=== PATIENT | male | born 1965 | race Caucasian/White ===

== ENCOUNTER 2016-10-08 07:25 | Emergency (ER) | payer OTHER ==
[~2016-10-08] VITALS: Ht 180.3 cm; Wt 106.8 kg
[2016-10-08 07:28] VITALS: BP 135/95; PULSE 81; RESP 14; O2SAT 97
--- NOTE | 2016-10-08 07:43 | ED.REPORT ---
HPI-General Illness Date of Service Oct 08, 2016 ED Provider: Eddie James Patient is an otherwise healthy 51 year old male who presents to the ED s/p obtaining a needle prick while at work at 0705 this morning. He was working at [email or web address] and emptying the trash in the bathroom when his L thumb and L ring finger were poked with several needles. He describes the needles as small, insulin-like syringes that were not grossly bloody. He washed with soapy water prior to arrival. He denies fevers, chills, or any other symptoms. His tetanus is not up to date. He does not believe he has had a hepatitis vaccine since retiring from the [employer] 11 years ago. Nursing Notes Stated Complaint: NEEDLE PRICK AT WORK Chief Complaint: Post Exposure Body Fluids Nursing Notes Reviewed: Yes Allergies: Coded Allergies: No Known Allergies (Unverified , 10/08/16) General Time Seen by MD: 07:42 Chief Complaint Other (Needle prick) Hx Obtained From: Patient Arrived By: Walk-in Sudden in Onset?: Yes Onset Occurred: Just prior to arrival Context: Occurred at: Workplace Severity: Current: No pain currently Severity: Maximum: No pain Similar Sx Previous: No Past Medical History Past Medical History Healthy Past Surgical History None reported Smoking History Unknown if Ever Smoker Social History Other Social History: Local resident Occupation ex-[employer] Status Independent Review of Systems +needle prick Full Review of Systems Constitutional: Denies: Chills, Fever Complete sys rev & neg: except as marked. Physical Exam Vital Signs Vital Signs Date Time Temp Pulse Resp B/P Pulse Ox O2 Delivery O2 Flow Rate FiO2 10/08/16 07:28 36.8 81 14 135/95 97 Room Air Initial VS: Reviewed Head / Eyes: Atraumatic, Normocephalic Neck: Full range of motion Respiratory: No respiratory distress Cardiovascular: Intact distal pulses Skin: Warm, Dry Neurologic: Alert, Oriented, Nonfocal Psychiatric: Mood/affect normal, Behavior normal, Normal thought content General/Constitutional: Awake, Alert, No acute distress Wrist / Hand: No swelling, No erythema, No deformity Needle pricks to side and tip of L thumb and tip of L ring finger Interpretation & Diagnostics Lab Results Interpretation Test 10/08/16 07:48 Re-Eval/Medical Decision Time of Eval: 07:50 Re-Evaluation/Progress Note: Discussed plan for lab draws and treatment. Patient understands and agrees with plan. All questions addressed at this time. Time of Eval: 08:04 Re-Evaluation/Progress Note: Rechecked patient. Informed of PEP recommendations and plan for discharge. Patient understands and agrees with plan. All questions addressed at this time. Consultation : Call Returned at: 07:55 Note: Discussed pt's case with PEP Hotline. Suggests no prophylaxis for HIV. Suggests Hep B immunization if immunity cannot be proven in 24 hours. Counseled Regarding: Diagnosis, Lab results, Need for follow-up, When/why to return to ED Discharge & Departure Primary Impression: Needle stick injury Encounter type: initial encounter Qualified Code: W27.3XXA - Contact with needle (sewing), initial encounter Disposition: Home Discharge Condition All VS Reviewed: Yes Condition: Stable Patient Instructions: Needle Stick Injuries (ED) Additional Instructions: After consultation with the PEP Hot line and they suggest that the risk of seroconversion to HIV after a needlestick is 0.23%. However, there are no documented cases of seroconversion from a "found needle" in over 30 years of data collection. We do not recommend HIV prophylaxis with medications as it is believed that the side effects and potential toxicity risk to the medications is higher than the probability of seroconversion to HIV. Regarding hepatitis B, you received an immunization today and should follow-up for repeat testing to confirm immunity. Regarding hepatitis C, surveillance blood testing is the only recommended course of action at this time. Follow-up with Dr. Hieu Portillo from infectious disease in the coming weeks to consider further evaluation and treatment. Referrals: Hieu Portillo MD Scribe Attestation Portions of this note were transcribed by Lillie Mao. I, Dr. James personally performed the history, physical exam and medical decision-making; I reviewed and confirmed the accuracy of the information in the transcribed note. Signed by: Lillie Mao 10/08/16, 0817 copies to: Hieu Portillo MD, Kirk H MD Oct 08, 2016 07:42 LILLIE MAO Oct 08, 2016 07:50
[2016-10-08] MEDS ORDERED: TdaP Vaccine 0.5 mL Inj IM ONE (08:15)
[2016-10-08] MEDS ORDERED: Hepatitis-B (Adult) Vaccine 20 mCg/1 mL Inj IM ONE (08:15)
[2016-10-08 09:00] VITALS: BP 123/88; PULSE 89; RESP 12; O2SAT 95
== END 2016-10-08 09:02 | disposition home or self-care (01) ==
LOC: SED 07:25
DX: S61.032A Puncture wound without foreign body of left thumb without damage to nail, initial encounter (principal); S61.235A Puncture wound without foreign body of left ring finger without damage to nail, initial encounter; W46.0XXA Contact with hypodermic needle, initial encounter; Y93.89 Activity, other specified; Y92.69 Other specified industrial and construction area as the place of occurrence of the external cause; Y99.0 Civilian activity done for income or pay; Z23 Encounter for immunization
CPT/HCPCS: 36415; 86706; 87340; 90471; 90472; 90715; 90746; 99284; G0433